=== PATIENT | female | born 1995 | race African-American/Black ===

== ENCOUNTER 2018-09-01 17:53 | Emergency (ER) | payer OTHER ==
[~2018-09-01] VITALS: Ht 152.4 cm; Wt 96.2 kg
[~2018-09-01 17:53] MED LIST: CARAFATE 1 GM TA1 G1 PO; COMPAZINE10 M2 PO; NAPROSYN500 MG PO; ONDANSETRON HCL4 M2 PO; VENTOLIN HFA 1818 GM INH; ZANTAC 150MG T150 MG PO
[2018-09-01 18:22] LABS: URINE BILIRUBIN NEGATIVE (Negative); URINE BLOOD 3+ (Negative); URINE CLARITY CLEAR; URINE COLOR YELLOW; URINE GLUCOSE-RANDOM* NEGATIVE (Negative); URINE KETONES NEGATIVE (Negative); URINE LEUKOCYTES-REFLEX TRACE (Negative); URINE NITRITE-REFLEX NEGATIVE (Negative); URINE PROTEIN (DIPSTICK) NEGATIVE (Negative); URINE UROBILINOGEN 0.2 E.U./dl (0.2-1.0)
[2018-09-01 18:28] LABS: ABSOLUTE NEUTROPHILS 4.2 thou/uL (1.4-8.2); BASOPHILS 0.7 % (0.0-2.0); HEMATOCRIT 40.2 % (37.0-47.0); HEMOGLOBIN 13.6 gm/dL (12.0-15.0); LYMPHOCYTES 31.3 % (24.0-44.0); MCH 27.5 pg (26.0-34.0); MCHC 33.7 g/dL (28.0-37.0); MCV 81.7 fL (80.0-100.0); MONOCYTES 7.9 % (1.0-8.0); PLATELET COUNT 228 thou/uL (150-400); POLYS 59.1 % (36.0-66.0); RBC 4.92 mil/uL (4.20-5.00); RDW 13.7 % (10.5-14.5); WBC 7.1 thou/uL (4.0-11.0)
[2018-09-01 18:33] LABS: BACTERIA-REFLEX 1-9 Few /HPF (None Seen); CASTS None Seen /LPF (None Seen); CRYSTALS None Seen /LPF (None Seen); SQUAMOUS 0-3 Few /LPF (0-3); URINE RBC 0-2 Rare /HPF (0-2); URINE WBC-REFLEX 0-5 Rare /HPF (0-5)
[2018-09-01 18:41] LABS: ANION GAP 7 mmol/L (7-16); BUN 5 mg/dL (7-18); CALCIUM 8.9 mg/dL (8.5-10.1); CHLORIDE 107 mmol/L (98-107); CO2 25 mmol/L (21-32); CREATININE 0.7 mg/dL (0.6-1.0); GLUCOSE 87 mg/dL (74-106); POTASSIUM 3.5 mmol/L (3.5-5.1); SODIUM 139 mmol/L (136-145)
[2018-09-01 18:47] LABS: ALBUMIN 3.4 g/dL (3.4-5.0); DIRECT BILIRUBIN < 0.1 mg/dL (<0.1-0.3); LIPASE 122 U/L (73-393); SGOT 14 U/L (15-37); SGPT 21 U/L (30-65); TOTAL BILIRUBIN 0.3 mg/dL (<0.1-1.0); TOTAL PROTEIN 6.9 g/dL (6.4-8.2)
[2018-09-01] MEDS ORDERED: MOBIC15 MG PO (20:40)
[2018-09-01] MEDS ORDERED: ZOFRAN ODT4 MG PO (20:40)
[2018-09-01 20:55] VITALS: BP 126/86
== END 2018-09-01 20:56 | disposition home or self-care (01) ==
LOC: ER 17:53
PROVIDERS: Emergency Medicine
DX: N83.202 Unspecified ovarian cyst, left side (principal); R11.10 Vomiting, unspecified; J45.909 Unspecified asthma, uncomplicated; G43.909 Migraine, unspecified, not intractable, without status migrainosus